=== PATIENT | female | born 1960 | race Caucasian/White ===

== ENCOUNTER 2016-10-01 15:55 | Inpatient (IN) | payer OTHER ==
[~2016-10-01] VITALS: Ht 157.5 cm; Wt 81.9 kg
[~2016-10-01 15:55] MED LIST: ASPIR 8181 M1 PO; ATENOLOL; ATENOLOL50 MG PO; ATIVAN0.5 MG PO; CIPRO250 MG PO; COUMADIN; COUMADIN,JANTOV10 MG PO; COUMADIN5 MG PO; DILT-CD180 MG PO; DOXYCYCLINE HY100 M1 PO; GLUCOPHAGE500 MG PO; HYDROCHLOROTH12.5 M3 PO; HYDROCHLOROTHIA25 MG PO; HYDROCHLOROTHIAZIDE PO; INDERIDE 40/1 TABLET PO; LEXAPRO10 MG PO; LORAZEPAM0.5 MG PO; METFORMIN PO; MICRO-K,K-TAB,10 MEQ PO; MULTIVITAMIN1 EAC1 PO; PROVENTIL,200 INHALA IH; Proventil,Ventolin H IH; TENORMIN25 MG PO; TENORMIN50 MG PO; ULTRACET1 TABLET PO; VENTOLIN17 GM IH; VITAMIN D1000 INTUN PO; ZITHROMAX Z-PA250 MG PO; ZITHROMAX250 MG PO; [UNRECOGNIZED DRUG - REMARK]; levothyroxine
[2016-10-01 16:17] LABS: HEMATOCRIT 36.2 % (36.0-46.0); MCH 30.2 PG (29.0-34.0); MCHC 32.3 G/DL (30.0-36.0); MCV 93.5 FL (83-99); MEAN PLAT.VOLUME 11.1 uM^3 (9.5-12.4); PLATELET COUNT 199 K/uL (156-360); RBC DIS.WIDTH-CV 15.6 % (11.8-14.6); RBC DIS.WIDTH-SD 53.3 % (39-53); RED BLOOD COUNT 3.87 M/uL (3.80-5.20); WHITE BLOOD COUNT 8.6 K/uL (4.1-10.2)
[2016-10-01 16:28] LABS: CHLORIDE 108 mEq/L (99-109); POTASSIUM 4.2 mEq/L (3.7-5.4); SODIUM 138 mEq/L (136-147)
[2016-10-01 16:30] LABS: GLUCOSE 79 mg/dL (70-99)
[2016-10-01 16:31] LABS: ANION GAP 8 MEQ/L (2-14)
[2016-10-01 16:34] LABS: GFR ESTIMATE (CALCULATED) > 59 mL/min/
[2016-10-01 16:35] LABS: UREA NITROGEN (BUN) 12 mg/dL (9-23)
[2016-10-01 17:44] LABS: INTER. NORMALIZED RATIO 3.1; PROTHROMBIN TIME 32.8 (9.2-11.2)
[2016-10-01 17:53] LABS: TROP-I INTERPRETATION NEGATIVE; TROPONIN-I < 0.01 ng/mL (0.0-0.30)
[2016-10-01] MEDS ORDERED: LEVOTHYROXINE PO (19:17)
[2016-10-01] MEDS ORDERED: POTASSIUM PO (19:18)
[2016-10-01] MEDS ORDERED: TYLENOL REGULA325 MG PO (19:19)
[2016-10-01 23:35] LABS: TROP-I INTERPRETATION NEGATIVE; TROPONIN-I 0.01 ng/mL (0.0-0.30)
[2016-10-01 23:42] LABS: POINT-OF-CARE METER ID UU14100415
[2016-10-02 06:23] LABS: ANION GAP 10 MEQ/L (2-14); CHLORIDE 105 MEQ/L (99-109); GFR ESTIMATE (CALCULATED) > 59 mL/min/; POTASSIUM 3.6 MEQ/L (3.7-5.4); SAMPLE HEMOLYSIS CHECK 0; SAMPLE ICTERIC CHECK 0; SAMPLE LIPEMIA CHECK 0; SODIUM 140 MEQ/L (136-147); UREA NITROGEN (BUN) 13 mg/dL (9-23)
[2016-10-02 06:24] LABS: GLUCOSE 180 mg/dL (70-99)
[2016-10-02 06:27] LABS: TROP-I INTERPRETATION NEGATIVE; TROPONIN-I < 0.01 ng/mL (0.0-0.30)
[2016-10-02 06:29] LABS: POINT-OF-CARE METER ID UU14100415
[2016-10-02 08:05] VITALS: BP 125/69
[2016-10-02 10:55] VITALS: BP 113/63
[2016-10-02 11:34] LABS: POINT-OF-CARE METER ID UU13113807
[2016-10-02 15:19] VITALS: BP 117/60
[2016-10-02 16:11] LABS: POINT-OF-CARE METER ID UU13113807
[2016-10-02 20:00] VITALS: BP 118/61
[2016-10-02 21:41] LABS: POINT-OF-CARE METER ID UU13113807
[2016-10-03 00:15] VITALS: BP 135/69
[2016-10-03 04:00] VITALS: BP 118/57
[2016-10-03 05:41] LABS: ANION GAP 9 MEQ/L (2-14); CHLORIDE 102 MEQ/L (99-109); GFR ESTIMATE (CALCULATED) > 59 mL/min/; GLUCOSE 139 mg/dL (70-99); POTASSIUM 3.4 MEQ/L (3.7-5.4); SAMPLE HEMOLYSIS CHECK 0; SAMPLE ICTERIC CHECK 0; SAMPLE LIPEMIA CHECK 0; SODIUM 140 MEQ/L (136-147); UREA NITROGEN (BUN) 17 mg/dL (9-23)
[2016-10-03 06:24] LABS: BASOPHIL COUNT 0.1 K/uL (0-0.1); EOSINOPHIL (%) 0.2 % (0-5); HEMATOCRIT 34.5 % (36.0-46.0); IMMATURE GRANULOCYTE (%) 0.7 % (0.0-0.7); IMMATURE GRANULOCYTE COUNT 0.1 K/uL; INSTRUMENT ABS NEUTROPHIL CT 10.4 K/uL; LYMPHOCYTE COUNT 2.3 K/uL (1.0-2.8); MCH 30.3 PG (29.0-34.0); MCHC 32.8 G/DL (30.0-36.0); MCV 92.5 FL (83-99); MEAN PLAT.VOLUME 11.6 uM^3 (9.5-12.4); MONOCYTE (%) 6.2 % (3-12); MONOCYTE COUNT 0.9 K/uL (0-0.8); NEUTROPHIL (%) 75.9 % (45-76); NEUTROPHIL COUNT 10.4 K/uL (1.8-6.4); PLATELET COUNT 201 K/uL (156-360); RBC DIS.WIDTH-CV 15.5 % (11.8-14.6); RBC DIS.WIDTH-SD 52.2 % (39-53); RED BLOOD COUNT 3.73 M/uL (3.80-5.20)
[2016-10-03 06:40] LABS: WHITE BLOOD COUNT 13.7 K/uL (4.1-10.2)
[2016-10-03 09:17] VITALS: BP 137/69
[2016-10-03 11:20] LABS: INTER. NORMALIZED RATIO 2.1
[2016-10-03 11:29] VITALS: BP 127/59
[2016-10-03 11:37] LABS: POINT-OF-CARE METER ID UU13113807; POINT-OF-CARE USER ID 606021404
[2016-10-03 13:20] LABS: ADD MIUA? NO; BILIRUBIN NEGATIVE; BLOOD NEGATIVE; COLOR STRAW ((YELLOW)); GLUCOSE (STRIP) NEGATIVE; KETONES NEGATIVE; LEUKOCYTES NEGATIVE; NITRITE NEGATIVE; PROTEIN (STRIP) NEGATIVE; SPECIFIC GRAVITY 1.006 (1.000-1.030); UCUL ADDED? NO; UROBILINOGEN 0.2 MG/DL (0.2-1.0)
[2016-10-03 17:31] LABS: POINT-OF-CARE METER ID UU14149398
[2016-10-03 17:40] VITALS: BP 120/63
[2016-10-03 20:20] VITALS: BP 123/73
[2016-10-03 21:49] LABS: POINT-OF-CARE METER ID UU13113807
[2016-10-04 00:15] VITALS: BP 116/61
[2016-10-04 04:30] VITALS: BP 117/66
[2016-10-04 08:01] LABS: INTER. NORMALIZED RATIO 1.6; PROTHROMBIN TIME 16.8 (9.2-11.2)
[2016-10-04 08:19] LABS: ANION GAP 8 MEQ/L (2-14); CHLORIDE 102 MEQ/L (99-109); GFR ESTIMATE (CALCULATED) > 59 mL/min/; GLUCOSE 102 mg/dL (70-99); SAMPLE HEMOLYSIS CHECK 0; SAMPLE ICTERIC CHECK 0; SAMPLE LIPEMIA CHECK 0; SODIUM 138 MEQ/L (136-147); UREA NITROGEN (BUN) 20 mg/dL (9-23)
[2016-10-04 08:52] VITALS: BP 122/61
[2016-10-04 11:45] LABS: POINT-OF-CARE METER ID UU13113807; POINT-OF-CARE USER ID 606021404
[2016-10-04 12:00] VITALS: BP 121/74
[2016-10-04] MEDS ORDERED: FUROSEMIDE40 MG PO (15:21)
== END 2016-10-04 17:06 | disposition home or self-care (01) | DRG 189 ==
LOC: EME 15:55 → EDOF 19:50 → 4SOUTH 19:50
PROVIDERS: Family Medicine; Hospitalist; Internal Medicine; Internal Medicine Cardiovascular Disease; Physician Assistant; Student in an Organized Health Care Education/Training Program
DX: J81.0 Acute pulmonary edema (principal); I50.9 Heart failure, unspecified; J18.9 Pneumonia, unspecified organism; J90 Pleural effusion, not elsewhere classified; D72.829 Elevated white blood cell count, unspecified; E11.9 Type 2 diabetes mellitus without complications; R00.1 Bradycardia, unspecified; I48.0 Paroxysmal atrial fibrillation; I11.0 Hypertensive heart disease with heart failure; E78.5 Hyperlipidemia, unspecified; F32.9 Major depressive disorder, single episode, unspecified; Z79.84 Long term (current) use of oral hypoglycemic drugs; J44.9 Chronic obstructive pulmonary disease, unspecified; F41.9 Anxiety disorder, unspecified; F17.210 Nicotine dependence, cigarettes, uncomplicated; E66.9 Obesity, unspecified; Z68.33 Body mass index [BMI] 33.0-33.9, adult
CPT/HCPCS: 71020; 80048; 81003; 82948; 83880; 84484; 85025; 85027; 85610; 93005; 94640; 94640 76; 99281; 99284; J1815; J1940; J2930

== ENCOUNTER 2016-12-09 16:25 | Emergency (ER) | payer OTHER ==
[~2016-12-09] VITALS: Ht 157.5 cm; Wt 82.8 kg
[~2016-12-09 16:25] MED LIST changes: +FUROSEMIDE40 MG PO; +LEVOTHYROXINE PO; +POTASSIUM PO; +TYLENOL REGULA325 MG PO
[2016-12-09 17:21] LABS: HEMATOCRIT 34.9 % (36.0-46.0); MCH 29.8 PG (29.0-34.0); MCHC 32.7 G/DL (30.0-36.0); MCV 91.4 FL (83-99); MEAN PLAT.VOLUME 10.9 uM^3 (9.5-12.4); PLATELET COUNT 179 K/uL (156-360); RBC DIS.WIDTH-CV 16.4 % (11.8-14.6); RBC DIS.WIDTH-SD 54.6 % (39-53); RED BLOOD COUNT 3.82 M/uL (3.80-5.20); WHITE BLOOD COUNT 9.5 K/uL (4.1-10.2)
[2016-12-09 17:30] LABS: CHLORIDE 109 mEq/L (99-109); POTASSIUM 3.8 mEq/L (3.7-5.4); SODIUM 140 mEq/L (136-147)
[2016-12-09 17:31] LABS: INTER. NORMALIZED RATIO 1.7; PROTHROMBIN TIME 17.2 (9.2-11.2); PTT 39.2 (25-32)
[2016-12-09 17:32] LABS: GLUCOSE 104 mg/dL (70-99)
[2016-12-09 17:33] LABS: ANION GAP 9 MEQ/L (2-14)
[2016-12-09 17:36] LABS: GFR ESTIMATE (CALCULATED) > 59 mL/min/; UREA NITROGEN (BUN) 10 mg/dL (9-23)
[2016-12-09 20:01] LABS: TOTAL BILIRUBIN 1.4 mg/dL (0.0-1.0)
[2016-12-09 20:02] LABS: ALKALINE PHOSPHATASE 126 IU/L (3-129)
[2016-12-09 20:04] LABS: DIRECT BILIRUBIN 0.6 mg/dL (0.0-0.3)
[2016-12-09 20:05] LABS: LIPASE 28 U/L (1.0-51.0)
[2016-12-09 21:04] VITALS: BP 135/73
== END 2016-12-09 21:07 | disposition home or self-care (01) ==
LOC: EME 16:25
PROVIDERS: Physician Assistant Medical
DX: S30.1XXA Contusion of abdominal wall, initial encounter (principal); D68.9 Coagulation defect, unspecified; R74.0 Nonspecific elevation of levels of transaminase and lactic acid dehydrogenase [LDH]; J90 Pleural effusion, not elsewhere classified; R18.8 Other ascites; Z79.01 Long term (current) use of anticoagulants; E11.9 Type 2 diabetes mellitus without complications; I10 Essential (primary) hypertension; E78.5 Hyperlipidemia, unspecified; F17.200 Nicotine dependence, unspecified, uncomplicated
CPT/HCPCS: 74177; 80048; 80076; 83690; 85027; 85610; 85730; 99281; 99284; J7030

== ENCOUNTER 2017-04-26 13:01 | Emergency (ER) | payer OTHER ==
[~2017-04-26] VITALS: Ht 157.5 cm; Wt 81.1 kg
[~2017-04-26 13:01] MED LIST changes: +ZOLOFT100 MG PO
[2017-04-26 13:36] LABS: HEMATOCRIT 34.2 % (36.0-46.0); MCH 30.6 PG (29.0-34.0); MCHC 32.2 G/DL (30.0-36.0); MEAN PLAT.VOLUME 11.6 uM^3 (9.5-12.4); PLATELET COUNT 144 K/uL (156-360); RBC DIS.WIDTH-CV 18.3 % (11.8-14.6); RBC DIS.WIDTH-SD 63.8 % (39-53); WHITE BLOOD COUNT 7.5 K/uL (4.1-10.2)
[2017-04-26 13:47] LABS: CHLORIDE 112 mEq/L (99-109); POTASSIUM 4.1 mEq/L (3.7-5.4); SODIUM 144 mEq/L (136-147)
[2017-04-26 13:48] LABS: GLUCOSE 90 mg/dL (70-99)
[2017-04-26 13:50] LABS: ANION GAP 7 MEQ/L (2-14)
[2017-04-26 13:52] LABS: GFR ESTIMATE (CALCULATED) > 59 mL/min/
[2017-04-26 13:53] LABS: UREA NITROGEN (BUN) 10 mg/dL (9-23)
[2017-04-26 14:10] LABS: ALKALINE PHOSPHATASE 134 IU/L (3-129)
[2017-04-26 14:13] LABS: DIRECT BILIRUBIN 0.5 mg/dL (0.0-0.3)
[2017-04-26 14:14] LABS: LIPASE 22 U/L (1.0-51.0)
[2017-04-26 14:17] LABS: TROP-I INTERPRETATION NEGATIVE; TROPONIN-I < 0.01 ng/mL (0.0-0.30)
[2017-04-26 14:36] LABS: INTER. NORMALIZED RATIO 1.9; PROTHROMBIN TIME 21.1 SEC (10.2-12.9)
[2017-04-26 14:39] LABS: PTT 43.2 SEC (25-37)
[2017-04-26 15:41] LABS: ADD MIUA? YES; BILIRUBIN NEGATIVE; BLOOD NEGATIVE; COLOR YELLOW ((YELLOW)); GLUCOSE (STRIP) NEGATIVE; KETONES NEGATIVE; LEUKOCYTES MODERATE; NITRITE POSITIVE; PROTEIN (STRIP) NEGATIVE; SPECIFIC GRAVITY 1.011 (1.000-1.030); UROBILINOGEN 0.2 MG/DL (0.2-1.0)
[2017-04-26 15:48] LABS: BACTERIA 2+ /HPF; EPITHELIAL CELLS 1+ /HPF; MUCUS TRACE /LPF; RED BLOOD CELLS 0-5 /HPF (0-5); UCUL ADDED? YES
[2017-04-26] MEDS ORDERED: KEFLEX500 MG PO (16:38)
[2017-04-26 17:55] VITALS: BP 119/66
== END 2017-04-26 17:55 | disposition home or self-care (01) ==
LOC: EME 13:01
PROVIDERS: Emergency Medicine
DX: N39.0 Urinary tract infection, site not specified (principal); R53.1 Weakness; R00.2 Palpitations; R05 Cough; I10 Essential (primary) hypertension; E11.9 Type 2 diabetes mellitus without complications; Z79.84 Long term (current) use of oral hypoglycemic drugs; I48.91 Unspecified atrial fibrillation; Z79.01 Long term (current) use of anticoagulants; Z90.49 Acquired absence of other specified parts of digestive tract; F17.200 Nicotine dependence, unspecified, uncomplicated
CPT/HCPCS: 71020; 80048; 80076; 81003; 83690; 84484; 85027; 85610; 85730; 87077; 87086; 87186; 93005; 99281; 99284

== ENCOUNTER 2017-08-10 09:41 | Observation (INO) | payer OTHER ==
[~2017-08-10] VITALS: Ht 157.5 cm; Wt 76.8 kg
[~2017-08-10 09:41] MED LIST changes: +KEFLEX500 MG PO
[2017-08-10 10:15] LABS: HEMATOCRIT 34.6 % (36.0-46.0); HEMOGLOBIN 11.4 G/DL (11.9-15.5); MCH 28.5 PG (29.0-34.0); MCHC 32.9 G/DL (30.0-36.0); MCV 86.5 FL (83-99); PLATELET COUNT 128 K/uL (156-360); RBC DIS.WIDTH-CV 16.6 % (11.8-14.6); RBC DIS.WIDTH-SD 52.5 % (39-53); WHITE BLOOD COUNT 5.3 K/uL (4.1-10.2)
[2017-08-10 10:24] LABS: INTER. NORMALIZED RATIO 2.4
[2017-08-10 10:27] LABS: PTT 45.7 SEC (25-37)
[2017-08-10 10:32] LABS: CHLORIDE 106 mEq/L (99-109); SODIUM 136 mEq/L (136-147)
[2017-08-10 10:34] LABS: GLUCOSE 105 mg/dL (70-99)
[2017-08-10 10:38] LABS: CREATININE 0.8 mg/dL (0.6-1.3); GFR ESTIMATE (CALCULATED) > 59 mL/min/
[2017-08-10 10:39] LABS: UREA NITROGEN (BUN) 9 mg/dL (9-23)
[2017-08-10 10:40] LABS: TROP-I INTERPRETATION NEGATIVE; TROPONIN-I 0.02 ng/mL (0.0-0.30)
[2017-08-10 11:54] LABS: APPEARANCE CLEAR ((CLEAR)); BILIRUBIN NEGATIVE; BLOOD SMALL; COLOR YELLOW ((YELLOW)); GLUCOSE (STRIP) NEGATIVE; KETONES NEGATIVE; LEUKOCYTES NEGATIVE; NITRITE NEGATIVE; PROTEIN (STRIP) 100; SPECIFIC GRAVITY 1.009 (1.000-1.030)
[2017-08-10 12:01] LABS: BACTERIA RARE /HPF; EPITHELIAL CELLS 1+ /HPF; HYALINE CASTS 0-5 /LPF; MUCUS TRACE /LPF; RED BLOOD CELLS 0-5 /HPF (0-5); UCUL ADDED? NO; WHITE BLOOD CELLS 0-5 /HPF (0-5)
[2017-08-10] MEDS ORDERED: LASIX40 MG PO (13:05)
[2017-08-10] MEDS ORDERED: COUMADIN2 MG PO (13:07)
[2017-08-10] MEDS ORDERED: LO-DOSE ASPIRIN81 M1 PO (13:08)
[2017-08-10] MEDS ORDERED: ZOCOR20 MG PO (13:08)
[2017-08-10] MEDS ORDERED: AMBIEN10 MG PO (13:08)
[2017-08-10] MEDS ORDERED: NORVASC2.5 MG PO (13:08)
[2017-08-10] MEDS ORDERED: LANOXIN125 MCG PO (13:09)
[2017-08-10] MEDS ORDERED: ATARAX,VISTARIL25 MG PO (13:09)
[2017-08-10] MEDS ORDERED: COMBIVENT RESPIM4 GM IH (13:09)
[2017-08-10] MEDS ORDERED: FLOVENT 11120 INHALA IH (13:10)
[2017-08-10] MEDS ORDERED: MUCINEX600 MG PO (13:10)
[2017-08-10] MEDS ORDERED: POTASSIUM CHLO20 ME1 PO (13:11)
[2017-08-10] MEDS ORDERED: SYNTHROID75 MCG PO (13:11)
[2017-08-10] MEDS ORDERED: GLUCOPHAGE500 MG PO (13:11)
[2017-08-10] MEDS ORDERED: LOMOTIL TABLET1 EACH PO (13:12)
[2017-08-10 15:38] VITALS: BP 121/63
[2017-08-10 16:23] LABS: TROP-I INTERPRETATION NEGATIVE; TROPONIN-I 0.01 ng/mL (0.0-0.30)
[2017-08-10 20:43] VITALS: BP 125/64
[2017-08-10 22:10] LABS: TROP-I INTERPRETATION NEGATIVE; TROPONIN-I < 0.01 ng/mL (0.0-0.30)
[2017-08-11 00:19] VITALS: BP 127/71
[2017-08-11 04:15] VITALS: BP 126/61
[2017-08-11 06:16] LABS: CHLORIDE 105 MEQ/L (99-109); CREATININE 0.6 MG/DL (0.6-1.3); GFR ESTIMATE (CALCULATED) > 59 mL/min/; POTASSIUM 3.9 MEQ/L (3.7-5.4); SODIUM 135 MEQ/L (136-147); UREA NITROGEN (BUN) 15 mg/dL (9-23)
[2017-08-11 06:17] LABS: GLUCOSE 170 mg/dL (70-99)
[2017-08-11 06:29] LABS: INTER. NORMALIZED RATIO 3.1
[2017-08-11 08:00] VITALS: BP 125/70
[2017-08-11] MEDS ORDERED: AZITHROMYCIN500 M1 PO (10:50)
[2017-08-11] MEDS ORDERED: CARDIZEM60 MG PO (10:51)
[2017-08-11] MEDS ORDERED: NICOTINE PATCH1 EAC2 TD (10:51)
[2017-08-11] MEDS ORDERED: OSELTAMIVIR PHO75 MG PO (10:51)
[2017-08-11 11:57] VITALS: BP 121/67
[2017-08-11 12:00] VITALS: BP 121/67
== END 2017-08-11 13:30 | disposition home or self-care (01) ==
LOC: EME 09:41 → EDOF 12:11 → 5WEST 12:11 → EDOF 12:11 → ENRESERV 12:13 → 5WEST 13:56
PROVIDERS: Emergency Medicine; Hospitalist
DX: J44.0 Chronic obstructive pulmonary disease with (acute) lower respiratory infection (principal); J44.1 Chronic obstructive pulmonary disease with (acute) exacerbation; J10.1 Influenza due to other identified influenza virus with other respiratory manifestations; R09.02 Hypoxemia; I48.0 Paroxysmal atrial fibrillation; Z79.01 Long term (current) use of anticoagulants; R07.9 Chest pain, unspecified; I11.0 Hypertensive heart disease with heart failure; I50.32 Chronic diastolic (congestive) heart failure; E11.9 Type 2 diabetes mellitus without complications; E87.2 Acidosis; E03.9 Hypothyroidism, unspecified; F17.210 Nicotine dependence, cigarettes, uncomplicated; E66.9 Obesity, unspecified; Z68.30 Body mass index [BMI] 30.0-30.9, adult; F32.9 Major depressive disorder, single episode, unspecified; F41.9 Anxiety disorder, unspecified; I34.0 Nonrheumatic mitral (valve) insufficiency; Z90.49 Acquired absence of other specified parts of digestive tract; Z79.82 Long term (current) use of aspirin; Z79.84 Long term (current) use of oral hypoglycemic drugs
CPT/HCPCS: 71045; 80048; 81003; 84484; 85027; 85610; 85730; 87502; 93005; 94640; 94799; 99281; 99284; G0378; J2930; J7512

== ENCOUNTER 2017-08-22 14:01 | Emergency (ER) | payer OTHER ==
[~2017-08-22] VITALS: Ht 157.5 cm; Wt 72.3 kg
[~2017-08-22 14:01] MED LIST changes: +AMBIEN10 MG PO; +ATARAX,VISTARIL25 MG PO; +AZITHROMYCIN500 M1 PO; +CARDIZEM60 MG PO; +COMBIVENT RESPIM4 GM IH; +COUMADIN2 MG PO; +FLOVENT 11120 INHALA IH; +LANOXIN125 MCG PO; +LASIX40 MG PO; +LO-DOSE ASPIRIN81 M1 PO; +LOMOTIL TABLET1 EACH PO; +MUCINEX600 MG PO; +NICOTINE PATCH1 EAC2 TD; +NORVASC2.5 MG PO; +OSELTAMIVIR PHO75 MG PO; +POTASSIUM CHLO20 ME1 PO; +SYNTHROID75 MCG PO; +ZOCOR20 MG PO
[2017-08-22 16:15] LABS: APPEARANCE SL.HAZY ((CLEAR)); BILIRUBIN NEGATIVE; BLOOD NEGATIVE; COLOR AMBER ((YELLOW)); GLUCOSE (STRIP) NEGATIVE; KETONES NEGATIVE; LEUKOCYTES TRACE; NITRITE POSITIVE; PROTEIN (STRIP) 30; SPECIFIC GRAVITY 1.019 (1.000-1.030)
[2017-08-22 16:21] LABS: BACTERIA RARE /HPF; CALCIUM OXALATE CRYSTALS 2+ /HPF; EPITHELIAL CELLS 1+ /HPF; HYALINE CASTS TNTC /LPF; MUCUS 3+ /LPF; RED BLOOD CELLS 0-5 /HPF (0-5); UCUL ADDED? NO; WHITE BLOOD CELLS 0-5 /HPF (0-5)
[2017-08-22 16:46] LABS: HEMATOCRIT 40.1 % (36.0-46.0); HEMOGLOBIN 12.9 G/DL (11.9-15.5); MCHC 32.2 G/DL (30.0-36.0); RBC DIS.WIDTH-CV 16.8 % (11.8-14.6); RED BLOOD COUNT 4.61 M/uL (3.80-5.20); WHITE BLOOD COUNT 10.2 K/uL (4.1-10.2)
[2017-08-22 16:47] LABS: PLATELET COUNT 272 K/uL (156-360)
[2017-08-22 16:55] LABS: CHLORIDE 108 mEq/L (99-109); SODIUM 140 mEq/L (136-147)
[2017-08-22 16:56] LABS: GLUCOSE 72 mg/dL (70-99)
[2017-08-22 17:00] LABS: GFR ESTIMATE (CALCULATED) > 59 mL/min/
[2017-08-22 17:01] LABS: UREA NITROGEN (BUN) 13 mg/dL (9-23)
[2017-08-22] MEDS ORDERED: BACTRIM,SEPT1 TABLET PO (17:16)
[2017-08-22 17:40] VITALS: BP 106/62
== END 2017-08-22 17:44 | disposition home or self-care (01) ==
LOC: EME 14:01
PROVIDERS: Physician Assistant
DX: N39.0 Urinary tract infection, site not specified (principal); R53.83 Other fatigue; E11.9 Type 2 diabetes mellitus without complications; Z79.84 Long term (current) use of oral hypoglycemic drugs; J44.9 Chronic obstructive pulmonary disease, unspecified; E78.5 Hyperlipidemia, unspecified; I10 Essential (primary) hypertension; F32.9 Major depressive disorder, single episode, unspecified; F41.9 Anxiety disorder, unspecified; F17.200 Nicotine dependence, unspecified, uncomplicated
CPT/HCPCS: 71046; 80048; 81003; 85027; 93005; 99281; 99283; J7030

== ENCOUNTER 2017-12-18 10:15 | Emergency (ER) | payer OTHER ==
[~2017-12-18] VITALS: Ht 157.5 cm; Wt 70.5 kg
[~2017-12-18 10:15] MED LIST changes: +BACTRIM,SEPT1 TABLET PO
[2017-12-18 10:35] LABS: HEMATOCRIT 39.8 % (36.0-46.0); HEMOGLOBIN 12.9 G/DL (11.9-15.5); MCH 27.5 PG (29.0-34.0); MCHC 32.4 G/DL (30.0-36.0); MCV 84.9 FL (83-99); PLATELET COUNT 201 K/uL (156-360); RBC DIS.WIDTH-CV 17.3 % (11.8-14.6); RBC DIS.WIDTH-SD 53.9 % (39-53); RED BLOOD COUNT 4.69 M/uL (3.80-5.20); WHITE BLOOD COUNT 6.9 K/uL (4.1-10.2)
[2017-12-18 10:50] LABS: CHLORIDE 103 mEq/L (99-109); POTASSIUM 3.9 mEq/L (3.7-5.4); SODIUM 140 mEq/L (136-147)
[2017-12-18 10:52] LABS: GLUCOSE 120 mg/dL (70-99)
[2017-12-18 10:56] LABS: CREATININE 0.8 mg/dL (0.6-1.3); GFR ESTIMATE (CALCULATED) > 59 mL/min/
[2017-12-18 10:57] LABS: UREA NITROGEN (BUN) 11 mg/dL (9-23)
[2017-12-18 11:13] LABS: TROP-I INTERPRETATION NEGATIVE; TROPONIN-I 0.01 ng/mL (0.0-0.30)
[2017-12-18 11:16] LABS: INTER. NORMALIZED RATIO 2.5
[2017-12-18 11:18] LABS: PTT 49.5 SEC (25-37)
[2017-12-18 11:30] LABS: DIGOXIN 0.5 ng/mL (0.8-2.0)
[2017-12-18 12:12] LABS: THYROTROPIN (TSH) 2.8 MIU/L (0.4-5.5)
[2017-12-18 13:58] VITALS: BP 124/74
== END 2017-12-18 14:01 | disposition home or self-care (01) ==
LOC: EME 10:15
DX: R00.2 Palpitations (principal); I48.91 Unspecified atrial fibrillation; Z79.01 Long term (current) use of anticoagulants; F17.200 Nicotine dependence, unspecified, uncomplicated; E11.9 Type 2 diabetes mellitus without complications; Z79.84 Long term (current) use of oral hypoglycemic drugs; I10 Essential (primary) hypertension; E78.5 Hyperlipidemia, unspecified; F32.9 Major depressive disorder, single episode, unspecified; J44.9 Chronic obstructive pulmonary disease, unspecified; F41.9 Anxiety disorder, unspecified; L40.9 Psoriasis, unspecified; Z79.82 Long term (current) use of aspirin
CPT/HCPCS: 71046; 80048; 80162; 84443; 84484; 85027; 85610; 85730; 93005; 99281; 99284

== ENCOUNTER 2018-02-16 12:56 | Inpatient (IN) | payer OTHER ==
[~2018-02-16] VITALS: Ht 157.5 cm; Wt 73.0 kg
[2018-02-16 14:20] LABS: HEMATOCRIT 22.5 % (36.0-46.0); HEMOGLOBIN 7.2 G/DL (11.9-15.5); MCH 27.6 PG (29.0-34.0); MCV 86.2 FL (83-99); PLATELET COUNT 199 K/uL (156-360); RBC DIS.WIDTH-CV 19.2 % (11.8-14.6); RED BLOOD COUNT 2.61 M/uL (3.80-5.20); WHITE BLOOD COUNT 8.3 K/uL (4.1-10.2)
[2018-02-16 14:27] LABS: INTER. NORMALIZED RATIO 1.5
[2018-02-16 14:29] LABS: PTT 32.9 SEC (25-37)
[2018-02-16 14:54] LABS: TROP-I INTERPRETATION NEGATIVE; TROPONIN-I < 0.01 ng/mL (0.0-0.30)
[2018-02-16 15:18] LABS: CHLORIDE 107 MEQ/L (99-109); CREATININE 0.9 MG/DL (0.6-1.3); GFR ESTIMATE (CALCULATED) > 59 mL/min/; GLUCOSE 112 mg/dL (70-99); POTASSIUM 4.2 MEQ/L (3.7-5.4); SODIUM 139 MEQ/L (136-147); UREA NITROGEN (BUN) 16 mg/dL (9-23)
[2018-02-16 16:14] LABS: THYROTROPIN (TSH) 2.2 MIU/L (0.4-5.5)
[2018-02-16 17:25] VITALS: BP 134/63
[2018-02-16 18:17] LABS: HEMOGLOBIN 7.3 G/DL (11.9-15.5); MCV 87.1 FL (83-99)
[2018-02-16 20:00] VITALS: BP 137/65
[2018-02-16 20:12] VITALS: BP 137/61
[2018-02-16 20:31] LABS: TROP-I INTERPRETATION NEGATIVE; TROPONIN-I < 0.01 ng/mL (0.0-0.30)
[2018-02-16 23:24] VITALS: BP 129/59
[2018-02-17] VITALS (13 sets, daily range): BP systolic 124–148; BP diastolic 60–70
[2018-02-17 03:22] LABS: TROP-I INTERPRETATION NEGATIVE; TROPONIN-I 0.01 ng/mL (0.0-0.30)
[2018-02-17 06:29] LABS: HEMATOCRIT 20.9 % (36.0-46.0); HEMOGLOBIN 6.8 G/DL (11.9-15.5); MCV 85.3 FL (83-99)
[2018-02-17 09:54] LABS: MCV 86.5 FL (83-99)
[2018-02-17 09:55] LABS: HEMOGLOBIN 8.8 G/DL (11.9-15.5)
[2018-02-17] MEDS ORDERED: LASIX40 MG PO (11:15)
[2018-02-17] MEDS ORDERED: ZOLOFT100 MG PO (11:15)
[2018-02-17] MEDS ORDERED: VITAMIN B-12500 MC5 SL (11:15)
[2018-02-17] MEDS ORDERED: XARELTO20 MG PO (11:16)
[2018-02-17] MEDS ORDERED: BIOTIN 5000MCG PO (11:16)
[2018-02-17] MEDS ORDERED: LOW DOSE ASPIRI81 M1 PO (11:16)
[2018-02-17] MEDS ORDERED: ZOCOR20 MG PO (11:16)
[2018-02-17] MEDS ORDERED: GLUCOPHAGE500 MG PO (11:17)
[2018-02-17] MEDS ORDERED: K-DUR20 MEQ PO (11:17)
[2018-02-17] MEDS ORDERED: TIROSINT75 MCG PO (11:17)
[2018-02-17] MEDS ORDERED: ATARAX,VISTARIL25 MG PO (11:17)
[2018-02-17 12:15] LABS: HEMATOCRIT 26.7 % (36.0-46.0); HEMOGLOBIN 8.7 G/DL (11.9-15.5); MCV 85.6 FL (83-99)
[2018-02-17 19:45] LABS: HEMATOCRIT 27.3 % (36.0-46.0); HEMOGLOBIN 8.8 G/DL (11.9-15.5); MCV 86.9 FL (83-99)
[2018-02-18 03:44] VITALS: BP 129/60
[2018-02-18 05:51] LABS: HEMATOCRIT 24.6 % (36.0-46.0); HEMOGLOBIN 7.9 G/DL (11.9-15.5); MCH 27.8 PG (29.0-34.0); MCHC 32.1 G/DL (30.0-36.0); MCV 86.6 FL (83-99); PLATELET COUNT 177 K/uL (156-360); RBC DIS.WIDTH-SD 55.8 % (39-53); RED BLOOD COUNT 2.84 M/uL (3.80-5.20); WHITE BLOOD COUNT 4.5 K/uL (4.1-10.2)
[2018-02-18 06:15] LABS: CHLORIDE 112 MEQ/L (99-109); CREATININE 0.8 MG/DL (0.6-1.3); GFR ESTIMATE (CALCULATED) > 59 mL/min/; GLUCOSE 98 mg/dL (70-99); POTASSIUM 3.4 MEQ/L (3.7-5.4); SODIUM 144 MEQ/L (136-147); UREA NITROGEN (BUN) 14 mg/dL (9-23)
[2018-02-18 07:40] VITALS: BP 121/56
[2018-02-18 15:15] LABS: HEMATOCRIT 25.6 % (36.0-46.0); HEMOGLOBIN 8.5 G/DL (11.9-15.5)
[2018-02-18 16:06] VITALS: BP 142/70
[2018-02-18 19:36] VITALS: BP 136/68
[2018-02-18 23:33] VITALS: BP 153/72
[2018-02-19 03:45] VITALS: BP 128/60
[2018-02-19 05:36] LABS: MCV 87.4 FL (83-99)
[2018-02-19 07:32] VITALS: BP 137/67
[2018-02-19] MEDS ORDERED: LOPRESSOR50 MG PO (10:40)
[2018-02-19] MEDS ORDERED: PROTONIX40 MG PO (10:43)
[2018-02-19 11:51] VITALS: BP 144/73
== END 2018-02-19 15:28 | disposition home or self-care (01) | DRG 378 ==
LOC: EME 12:56 → EDOF 16:06 → ENRESERV 16:15 → 4SOUTH 17:17 → ENPENDDIS 02-19 → 4SOUTH 02-19 15:28
PROVIDERS: Emergency Medicine; Internal Medicine; Physician Assistant
PROC: 30233N1 Transfusion of Nonautologous Red Blood Cells into Peripheral Vein, Percutaneous Approach (ICD-10-PCS; principal; 2018-02-17)
PROC: 0DJ08ZZ Inspection of Upper Intestinal Tract, Via Natural or Artificial Opening Endoscopic (ICD-10-PCS; principal; 2018-02-17)
DX: K92.2 Gastrointestinal hemorrhage, unspecified (principal); D62 Acute posthemorrhagic anemia; K29.60 Other gastritis without bleeding; I11.0 Hypertensive heart disease with heart failure; I27.20 Pulmonary hypertension, unspecified; I07.1 Rheumatic tricuspid insufficiency; I48.0 Paroxysmal atrial fibrillation; I50.32 Chronic diastolic (congestive) heart failure; J44.9 Chronic obstructive pulmonary disease, unspecified; E78.5 Hyperlipidemia, unspecified; E11.9 Type 2 diabetes mellitus without complications; F17.200 Nicotine dependence, unspecified, uncomplicated; R79.1 Abnormal coagulation profile; T45.515A Adverse effect of anticoagulants, initial encounter; Z79.01 Long term (current) use of anticoagulants; Z79.4 Long term (current) use of insulin; E03.9 Hypothyroidism, unspecified; K44.9 Diaphragmatic hernia without obstruction or gangrene; Z87.74 Personal history of (corrected) congenital malformations of heart and circulatory system; K29.80 Duodenitis without bleeding
CPT/HCPCS: 71045; 80048; 82948; 84443; 84484; 85014; 85018; 85027; 85610; 85730; 86850; 86900; 86901; 86920; 93005; 99281; 99285; C9113; G0378; J1815; J2250; J2354; J7030; J7050; P9016

== ENCOUNTER 2018-03-09 14:15 | Inpatient (IN) | payer OTHER ==
[~2018-03-09] VITALS: Ht 157.5 cm; Wt 70.5 kg
[2018-03-09] VITALS (11 sets, daily range): BP systolic 97–138; BP diastolic 55–71
[~2018-03-09 14:15] MED LIST changes: +BIOTIN 5000MCG PO; +K-DUR20 MEQ PO; +LOPRESSOR50 MG PO; +LOW DOSE ASPIRI81 M1 PO; +PROTONIX40 MG PO; +TIROSINT75 MCG PO; +VITAMIN B-12500 MC5 SL; +XARELTO20 MG PO
[2018-03-09 15:11] LABS: HEMATOCRIT 16.3 % (36.0-46.0); MCH 26.3 PG (29.0-34.0); MCHC 30.7 G/DL (30.0-36.0); MCV 85.8 FL (83-99); PLATELET COUNT 154 K/uL (156-360); RBC DIS.WIDTH-CV 17.4 % (11.8-14.6); RBC DIS.WIDTH-SD 54.7 % (39-53); WHITE BLOOD COUNT 6.5 K/uL (4.1-10.2)
[2018-03-09 15:13] LABS: CHLORIDE 110 mEq/L (99-109); POTASSIUM 3.8 mEq/L (3.7-5.4); SODIUM 142 mEq/L (136-147)
[2018-03-09 15:15] LABS: GLUCOSE 120 mg/dL (70-99)
[2018-03-09 15:19] LABS: CREATININE 0.9 mg/dL (0.6-1.3); GFR ESTIMATE (CALCULATED) > 59 mL/min/
[2018-03-09 15:20] LABS: UREA NITROGEN (BUN) 17 mg/dL (9-23)
[2018-03-09 15:48] LABS: INTER. NORMALIZED RATIO 1.2
[2018-03-09 15:50] LABS: PTT 31.4 SEC (25-37)
[2018-03-10] VITALS (8 sets, daily range): BP systolic 124–151; BP diastolic 68–75
[2018-03-10 06:09] LABS: HEMATOCRIT 24.3 % (36.0-46.0); MCH 27.1 PG (29.0-34.0); MCHC 32.5 G/DL (30.0-36.0); MCV 83.2 FL (83-99); NRBC (%) 0.3 /100 WBC (0-0); PLATELET COUNT 122 K/uL (156-360); RBC DIS.WIDTH-CV 17.2 % (11.8-14.6); WHITE BLOOD COUNT 5.9 K/uL (4.1-10.2)
[2018-03-10 06:10] LABS: HEMOGLOBIN 7.9 G/DL (11.9-15.5); RED BLOOD COUNT 2.92 M/uL (3.80-5.20)
[2018-03-10 06:27] LABS: CHLORIDE 112 MEQ/L (99-109); CREATININE 0.8 MG/DL (0.6-1.3); GFR ESTIMATE (CALCULATED) > 59 mL/min/; GLUCOSE 100 mg/dL (70-99); POTASSIUM 4.1 MEQ/L (3.7-5.4); SODIUM 143 MEQ/L (136-147); UREA NITROGEN (BUN) 16 mg/dL (9-23)
[2018-03-10 15:59] LABS: HEMOGLOBIN 7.2 G/DL (11.9-15.5); MCV 83.3 FL (83-99)
[2018-03-11 04:00] VITALS: BP 147/69
[2018-03-11 07:54] VITALS: BP 145/74
[2018-03-11 08:56] LABS: HEMATOCRIT 23.8 % (36.0-46.0); HEMOGLOBIN 7.5 G/DL (11.9-15.5); MCH 26.8 PG (29.0-34.0); MCHC 31.5 G/DL (30.0-36.0); PLATELET COUNT 120 K/uL (156-360); RBC DIS.WIDTH-CV 17.4 % (11.8-14.6); WHITE BLOOD COUNT 5.4 K/uL (4.1-10.2)
[2018-03-11 12:36] VITALS: BP 140/69
[2018-03-11 16:13] VITALS: BP 163/84
[2018-03-11 20:10] VITALS: BP 180/82
[2018-03-11 23:37] VITALS: BP 141/68
[2018-03-12] VITALS (8 sets, daily range): BP systolic 143–161; BP diastolic 65–85
[2018-03-12 06:03] LABS: HEMATOCRIT 22.8 % (36.0-46.0); MCH 26.3 PG (29.0-34.0); MCHC 30.7 G/DL (30.0-36.0); MCV 85.7 FL (83-99); PLATELET COUNT 126 K/uL (156-360); RBC DIS.WIDTH-CV 17.2 % (11.8-14.6); RBC DIS.WIDTH-SD 52.7 % (39-53); RED BLOOD COUNT 2.66 M/uL (3.80-5.20); WHITE BLOOD COUNT 5.7 K/uL (4.1-10.2)
== END 2018-03-12 18:21 | disposition home or self-care (01) | DRG 812 ==
LOC: EME 14:15 → 5SOUTH 16:34 → EDOF 16:34 → ENRESERV 16:35 → 5SOUTH 17:49 → ENRESERV 17:53 → EDOF 17:53 → 5SOUTH 19:17
PROVIDERS: Emergency Medicine; Family Medicine; Physician Assistant
PROC: 30233N1 Transfusion of Nonautologous Red Blood Cells into Peripheral Vein, Percutaneous Approach (ICD-10-PCS; principal; 2018-03-09)
PROC: 0DBK8ZZ Excision of Ascending Colon, Via Natural or Artificial Opening Endoscopic (ICD-10-PCS; 2018-03-12)
DX: D50.0 Iron deficiency anemia secondary to blood loss (chronic) (principal); D12.2 Benign neoplasm of ascending colon; K92.2 Gastrointestinal hemorrhage, unspecified; E78.5 Hyperlipidemia, unspecified; E11.9 Type 2 diabetes mellitus without complications; J44.9 Chronic obstructive pulmonary disease, unspecified; I48.0 Paroxysmal atrial fibrillation; I11.0 Hypertensive heart disease with heart failure; I50.32 Chronic diastolic (congestive) heart failure; E86.1 Hypovolemia; K44.9 Diaphragmatic hernia without obstruction or gangrene; E03.9 Hypothyroidism, unspecified; L40.9 Psoriasis, unspecified; F41.9 Anxiety disorder, unspecified; Z87.891 Personal history of nicotine dependence; Z79.82 Long term (current) use of aspirin; Z79.01 Long term (current) use of anticoagulants; Z79.84 Long term (current) use of oral hypoglycemic drugs
CPT/HCPCS: 36415; 80048; 82948; 85014; 85018; 85025; 85027; 85610; 85730; 86850; 86900; 86901; 86920; 87338; 88305; 99281; 99285; C9113; J0696; J1815; J7030; P9016

== ENCOUNTER 2018-03-13 12:23 | Emergency (ER) | payer OTHER ==
[~2018-03-13] VITALS: Ht 157.5 cm; Wt 79.3 kg
[2018-03-13 13:39] LABS: HEMATOCRIT 26.6 % (36.0-46.0); HEMOGLOBIN 8.3 G/DL (11.9-15.5); MCH 27.2 PG (29.0-34.0); MCHC 31.2 G/DL (30.0-36.0); MCV 87.2 FL (83-99); PLATELET COUNT 139 K/uL (156-360); RBC DIS.WIDTH-CV 18.7 % (11.8-14.6); RBC DIS.WIDTH-SD 55.2 % (39-53); RED BLOOD COUNT 3.05 M/uL (3.80-5.20); WHITE BLOOD COUNT 6.2 K/uL (4.1-10.2)
[2018-03-13 13:49] LABS: ALBUMIN 3.3 g/dL (3.2-4.8); CHLORIDE 114 mEq/L (99-109); POTASSIUM 3.6 mEq/L (3.7-5.4); SODIUM 142 mEq/L (136-147)
[2018-03-13 13:51] LABS: GLUCOSE 89 mg/dL (70-99)
[2018-03-13 13:53] LABS: TOTAL BILIRUBIN 0.7 mg/dL (0.0-1.0)
[2018-03-13 13:55] LABS: ALKALINE PHOSPHATASE 125 IU/L (3-129); CREATININE 0.9 mg/dL (0.6-1.3); GFR ESTIMATE (CALCULATED) > 59 mL/min/
[2018-03-13 13:56] LABS: APPEARANCE CLEAR ((CLEAR)); BILIRUBIN NEGATIVE; BLOOD NEGATIVE; COLOR COLORLESS ((YELLOW)); GLUCOSE (STRIP) NEGATIVE; KETONES NEGATIVE; LEUKOCYTES NEGATIVE; NITRITE NEGATIVE; PROTEIN (STRIP) NEGATIVE; SPECIFIC GRAVITY 1.003 (1.000-1.030); UCUL ADDED? NO; UROBILINOGEN 0.2 MG/DL (0.2-1.0)
[2018-03-13 13:56] LABS: UREA NITROGEN (BUN) 13 mg/dL (9-23)
[2018-03-13 13:57] LABS: AST (GOT) 26 IU/L (2-34)
[2018-03-13 14:11] LABS: ALT (GPT) 18 IU/L (3-49)
[2018-03-13 15:53] VITALS: BP 15/73
== END 2018-03-13 15:54 | disposition home or self-care (01) ==
LOC: EME 12:23
PROVIDERS: Nurse Practitioner Family
DX: R14.0 Abdominal distension (gaseous) (principal); D64.9 Anemia, unspecified; I10 Essential (primary) hypertension; E78.5 Hyperlipidemia, unspecified; E11.9 Type 2 diabetes mellitus without complications; Z79.84 Long term (current) use of oral hypoglycemic drugs; Z90.49 Acquired absence of other specified parts of digestive tract; Z87.891 Personal history of nicotine dependence
CPT/HCPCS: 74018; 80053; 81003; 83880; 85027; 99281; 99284